=== PATIENT | female | born 1975 | race Caucasian/White ===

== ENCOUNTER 2017-03-02 09:45 | Emergency (ER) | payer OTHER ==
[~2017-03-02] VITALS: Ht 154.9 cm; Wt 93.0 kg
[2017-03-02] MEDS ORDERED: FIORICET 50-301 EACH PO (12:13)
[2017-03-02 14:04] VITALS: BP 127/74
[2017-03-02 14:16] LABS: HEMATOCRIT 44.9 % (36.0-46.0); MCH 29.5 PG (29.0-34.0); MCHC 32.5 G/DL (30.0-36.0); MCV 90.7 FL (83-99); MEAN PLAT.VOLUME 9.7 uM^3 (9.5-12.4); PLATELET COUNT 348 K/uL (156-360); RBC DIS.WIDTH-CV 12.2 % (11.8-14.6); RBC DIS.WIDTH-SD 40.6 % (39-53); RED BLOOD COUNT 4.95 M/uL (3.80-5.20)
[2017-03-02 14:28] LABS: CHLORIDE 105 mEq/L (99-109); POTASSIUM 4.5 mEq/L (3.7-5.4); SODIUM 143 mEq/L (136-147)
[2017-03-02 14:30] LABS: GLUCOSE 124 mg/dL (70-99)
[2017-03-02 14:31] LABS: ANION GAP 15 MEQ/L (2-14)
[2017-03-02 14:32] LABS: TOTAL BILIRUBIN 0.4 mg/dL (0.0-1.0)
[2017-03-02 14:33] LABS: ALKALINE PHOSPHATASE 128 IU/L (3-129)
[2017-03-02 14:34] LABS: GFR ESTIMATE (CALCULATED) > 59 mL/min/
[2017-03-02 14:35] LABS: UREA NITROGEN (BUN) 14 mg/dL (9-23)
== END 2017-03-02 14:04 | disposition home or self-care (01) ==
LOC: EME 09:45
PROVIDERS: Physician Assistant
DX: G43.909 Migraine, unspecified, not intractable, without status migrainosus (principal); Z91.14 Patient's other noncompliance with medication regimen; H57.02 Anisocoria; R73.9 Hyperglycemia, unspecified
CPT/HCPCS: 70553; 80053; 85027; 99281; 99284; J1100; J2765